=== PATIENT | male | born 1995 | race Caucasian/White ===

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

== ENCOUNTER 2017-07-27 17:01 | Emergency (ER) | payer OTHER ==
[2017-07-27 17:34] VITALS: BP 114/61
--- NOTE | 2017-07-27 17:36 | UC ---
General HPI - HPI Summary HPI Summary: "I THINK I HAVE MONO". PT IS C/O A 3 DAY HX FATIGUE, SWOLLEN NECK GLANDS, BODYACHES AND SOME FULLNESS ACROSS HIS UPPER ABDOMEN AND PRESSURE IN HIS L UPPER ABDOMEN WITH DEEP BREATHS. HE DENIES HX MONO, SORE THROAT, FEVER, CHILLS, N/V/D/DYSURIA. NO COUGH, SOB. - History of Current Complaint Stated Complaint: FATIGUE, FULLNESS, ABD PRESSURE Time Seen by Provider: 07/27/17 17:23 Hx Obtained From: Patient Onset/Duration: Gradual Onset Timing: Constant Aggravating: NOTHING Alleviating: NOTHING Associated Signs & Symptoms: Negative: Abdominal Pain, Diarrhea, Dysuria, Fever , Nausea, Vomiting - Allergy/Home Medications Allergies/Adverse Reactions: Allergies Allergy/AdvReac Type Severity Reaction Status Date / Time amoxicillin [From Augmentin] AdvReac GI Upset Verified 07/27/17 17:25 clavulanic acid AdvReac GI Upset Verified 07/27/17 17:25 [From Augmentin] PMH/Surg Hx/FS Hx/Imm Hx Previously Healthy: Yes - Surgical History Surgical History: Yes Surgery Procedure, Year, and Place: t&A - Family History Known Family History: Positive: None Negative: Diabetes - Social History Occupation: Student Lives: Dormitory/Roommates Alcohol Use: Occasionally Substance Use Type: None Smoking Status (MU): Never Smoked Tobacco - Immunization History Vaccination Up to Date: Yes Review of Systems Constitutional: Fatigue Skin: Negative Eyes: Negative ENT: Negative Respiratory: Negative Cardiovascular: Negative Gastrointestinal: Negative Genitourinary: Negative Motor: Negative Neurovascular: Negative Musculoskeletal: Myalgia Neurological: Negative Psychological: Negative Is Patient Immunocompromised?: No All Other Systems Reviewed And Are Negative: Yes Physical Exam Triage Information Reviewed: Yes Appearance: Well-Appearing Vital Signs Reviewed: Yes Eyes: Positive: Conjunctiva Clear ENT: Positive: Pharynx normal, TMs normal. Negative: Nasal congestion, Nasal drainage Neck: Positive: Supple, Tenderness @ - R POSTERIOR CERVICAL NODE THAT IS MILDLY ENLARGED Respiratory: Positive: Chest non-tender, Lungs clear, Normal breath sounds Cardiovascular: Positive: RRR, No Murmur Abdomen Description: Positive: Nontender, No Organomegaly, Soft. Negative: Bruit, CVA Tenderness (R), CVA Tenderness (L), Distended, Guarding Bowel Sounds: Positive: Present Musculoskeletal: Positive: ROM Intact Neurological: Positive: Alert Psychological: Positive: Age Appropriate Behavior Skin Exam: Normal Course/Dx - Course Course Of Treatment: Pharyngeal exam is unremarkable. Abdominal exam is unremarkable including no HSM, guarding or tenderness. s/s's most likely mono. case d/w Dr minor, ER transfered offered but pt declined thus will do out pt cbc with diff and mono spot with reflex to EBV. need for f/u pcp stressed along with go to ER for changes or worsening. Also stressed may not do physical activities or sport until cleared by his pcp. I did advise pt that is his labs are negative, he will require additional evaluation to exclude other causes of lymph node swelling such as CA/lymphoma. - Differential Dx - Multi-Symptom Provider Diagnoses: Fatigue, Lymphadenopathy R posterior cervical chain, possible mono Discharge - Sign-Out/Discharge Documenting (check all that apply): Discharge/Admit/Transfer - Discharge Plan Condition: Stable Disposition: HOME Patient Education Materials: Mononucleosis (ED), Lymphadenopathy (ED), Fatigue (ED) Forms: *Physical Education Release Referrals: Karla WALTER,Dion Celaya [Primary Care Provider] - Additional Instructions: CALL YOUR DOCTOR IN [place] TO BE SEEN THIS WEEK. GO TO ER IMMEDIATELY FOR ANY CHANGES OR WORSENING. NO PHYSICAL ACTIVITY OR SPORTS UNTIL CLEARED BY YOUR DOCTOR. - Billing Disposition and Condition Condition: STABLE Disposition: HOME
[2017-07-27 19:40] LABS: Hematocrit 48 % (42-52); Hemoglobin 16.2 g/dl (14.0-18.0); Mean Corpuscular HGB Conc 34 g/dl (31-36); Mean Corpuscular Hemoglobin 32 pg (27-31); Mean Corpuscular Volume 94 fL (80-94); Mean Platelet Volume 8.6 um3 (7.4-10.4); Platelet Count 148 10^3/ul (150-450); Red Blood Count 5.08 10^6/ul (4.0-5.4); Red Cell Distribution Width 13 % (10.5-15); White Blood Count 7.4 10^3/ul (3.5-10.8)
[2017-07-27 20:23] LABS: ABS Basophils 0 10^3/ul (0-0.2); ABS Eosinophils 0.1 10^3/ul (0-0.6); ABS Lymphocytes 2.6 10^3/ul (1.0-4.8); ABS Monocytes 0.8 10^3/ul (0-0.8); ABS Neutrophils 3.8 10^3/ul (1.5-7.7); ABS Nucleated RBC 0 10^3/ul; Eosinophil % 1.2 % (0-6); Lymphocyte % 35.1 % (25-47); Nucleated Red Blood Cells % 0.1
== END 2017-07-27 18:06 | disposition home or self-care (01) ==
LOC: UCCORT 17:01
DX: R53.83 Other fatigue (principal); R59.1 Generalized enlarged lymph nodes; Z88.0 Allergy status to penicillin; Z88.8 Allergy status to other drugs, medicaments and biological substances
CPT/HCPCS: 36415; 85025; 99211; G0463